=== PATIENT | female | born 1955 | race Caucasian/White ===

== ENCOUNTER → 2018-06-01 | Outpatient (CLI) | payer BC ==
[~2018-06-01] MED LIST: CALTRATE-600 W600 MG PO; FISH OIL CONC1000 MG PO; MAGNESIUM OXIDE PO; MVI PO; NIACIN PO; PRAVACHOL10 MG PO
== END ==
LOC: COL.RAD 09:16
DX: E03.9 Hypothyroidism, unspecified (principal); G51.9 Disorder of facial nerve, unspecified
CPT/HCPCS: A9585

== ENCOUNTER → 2018-07-14 | Outpatient (CLI) | payer BC | LOC: SUN.DIA 10:45 | DX: E11.9 Type 2 diabetes mellitus without complications (principal); E78.5 Hyperlipidemia, unspecified | CPT/HCPCS: G0108 ==

== ENCOUNTER → 2018-07-28 | Outpatient (CLI) | payer BC | LOC: SUN.DIA 09:17 | DX: E11.9 Type 2 diabetes mellitus without complications (principal); E78.5 Hyperlipidemia, unspecified | CPT/HCPCS: G0108 ==

== ENCOUNTER → 2018-09-30 | Outpatient (CLI) | payer BC | LOC: SUN.DIA 09-03 14:46 → DIA.ED 09-03 15:23 | DX: E11.9 Type 2 diabetes mellitus without complications (principal); E78.5 Hyperlipidemia, unspecified | CPT/HCPCS: G0109 ==

== ENCOUNTER → 2018-10-21 | Outpatient (CLI) | payer BC | LOC: DIA.ED 10-14 15:40 | DX: E11.9 Type 2 diabetes mellitus without complications (principal); E78.5 Hyperlipidemia, unspecified | CPT/HCPCS: G0109 ==

== ENCOUNTER → 2018-11-04 | Outpatient (CLI) | payer BC | LOC: DIA.ED 11:04 | DX: E11.9 Type 2 diabetes mellitus without complications (principal); E78.5 Hyperlipidemia, unspecified | CPT/HCPCS: G0108 ==

== ENCOUNTER → 2019-10-18 | Outpatient (CLI) | payer MEDICARE, BC | LOC: MC.RAD 08:29 | DX: Z12.31 Encounter for screening mammogram for malignant neoplasm of breast (principal) ==